=== PATIENT | female | born 1960 | race Caucasian/White ===

== ENCOUNTER 2017-08-16 17:05 | Emergency (ER) | payer MEDICARE ==
[~2017-08-16] VITALS: Ht 154.9 cm; Wt 49.9 kg
[~2017-08-16 17:05] MED LIST: COREG25 MG PO; FLEXERIL10 MG PO; IBU-8800 MG PO; KLONOPIN1 MG PO; MORPHINE SULFAT30 M3 PO; PERCOCET 10 MG1 EACH PO; ULTRACET 325 MG1 TAB PO; WELLBUTRIN 150150 MG PO; ZOFRAN4 MG PO; ZYPREXA5 MG PO
--- NOTE | 2017-08-16 17:47 | RADIOLOGY REPORT PS360 ---
HIP LT 2-3V W/PELVIS IF PERFOR HISTORY: Pain following injury FALL TWO NIGHTS AGO ORDERING PHYSICIAN: MICHAEL VIRK APRN PATIENT AGE: 57 years COMPARISON: None FINDINGS: No acute fracture or dislocation apparent. Minimal osteoarthritic changes involve the left hip. There is mild thickening of the ileum at the medial aspect of the acetabulum which could be due to an old fracture. Mild sclerosis involving the superior aspect of the left SI joint. IMPRESSION: 1. No acute fracture. 2. Possible old fracture of the acetabulum on the left with 3. Mild osteoarthritic changes
[2017-08-16] MEDS ORDERED: FLEXERIL10 MG PO (17:53)
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
[2017-08-16 17:57] VITALS: BP 110/70
== END 2017-08-16 17:58 | disposition home or self-care (01) ==
LOC: UTC 17:05
DX: M25.552 Pain in left hip (principal); I10 Essential (primary) hypertension; Z88.1 Allergy status to other antibiotic agents; Z88.6 Allergy status to analgesic agent; F17.210 Nicotine dependence, cigarettes, uncomplicated